=== PATIENT | female | born 1960 | race Caucasian/White ===

== ENCOUNTER 2017-10-14 06:32 | Day surgery (SDC) | payer OTHER ==
[2017-10-12 09:19] VITALS: BMI 45.2
[2017-10-14] MEDS ORDERED: Lidocaine 2% Inj (20ml) ONE (08:07)
[2017-10-14] MEDS ORDERED: Midazolam 2 MG/2 ML VIAL ONE ×3 (08:08→11:31)
[2017-10-14] MEDS ORDERED: Iodixanol 320 MG/ML 200 ML BOTTLE IV ONE ×2 (08:08→11:31)
[2017-10-14] MEDS ORDERED: Iodixanol 320 MG/ML 100 ML BOTTLE IV ONE (08:25)
[2017-10-14] MEDS ORDERED: Morphine 4 MG/ML VIAL ONE (12:56)
--- NOTE | 2017-10-14 23:47 | CARDCATH ---
PROCEDURE DATE: 10/14/2017 INDICATIONS: Uvaldo is a 57-year-old female with past medical history significant for hypertension, dyslipidemia, diabetes mellitus, peripheral vascular occlusive disease, status post angioplasty stenting in 12/2016 at [facility]. She started to have worsening symptoms of claudication and after nine months underwent noninvasive evaluation and for which she was brought back for further evaluation and treatment. PROCEDURES PERFORMED: Distal abdominal aortogram with bilateral iliac runoff, selective bilateral iliofemoral angiogram with runoff, [employer] atherectomy of right SFA with use of 1.5 CSI atherectomy device, addition of balloon angioplasty with 6.0 x 250 balloon, right SFA multiple tandem 99% and 80% stenosis down to 0% ABY-3 flow, 6-[place] left femoral arterial access, Mynx closure device for hemostasis. TECHNIQUES OF PROCEDURE: After obtaining informed consent, patient was brought to the cardiac cath suite in post-absorptive, non-sedated state. Patient was prepped and draped in the usual sterile fashion. Then, 2% lidocaine was used for infiltration of anesthesia. Using modified Seldinger technique, a 6-[place] sheath was introduced into the left femoral artery. Left iliofemoral angiogram with runoff was performed. Subsequently, over a glide Advantage wire, a catheter was advanced into the abdominal aorta. Abdominal aortogram with bilateral iliac runoff was performed. Subsequently, a catheter was advanced across the aortoiliac bifurcation to the right common femoral artery. Digital subtraction angiographic views of the right SFA, right popliteal, right [id number], and a right foot profile was obtained. Angiographic findings of the left lower extremity, left common iliac and external iliac were patent. Left profunda femoris was patent. SFA moderate diffuse, 60% stenosis with mid-80% stenosis with 2-vessel runoff of AT and peroneal below the knee. Right lower extremity: Right common iliac and external iliac patent. Profunda femoris was patent. SFA has proximal 99% stenosis, mid 80% stenosis, and then distal SFA has a stent with two tandem lesions, 99% and 80%, 3-vessel runoff below the knee. TECHNIQUES OF INTERVENTION: After reviewing the above angiographic findings, the 6-Tai[place]ese sheath was exchanged over a Glidewire. Over the Glidewire a 6-[place]ese 45-cm Destination [place] sheath, the distal tip of which was placed at the level of the right common femoral artery. Subsequently, digital subtraction angiographic views were obtained and a wire was used to negotiate through the 99% stenosis and below the infrapopliteal segment. At this point, atherectomy with 1.5 CSI atherectomy device of the nikolski stenosis was done and subsequently balloon angioplasty with 6.0 x 250 balloon was done with lesion reduction down to 0%, ABY 3 flow. Final angiogram then showed good ABY-3 flow up to the level of the foot. IMPRESSION: Successful percutaneous transluminal angioplasty atherectomy, angioplasty of the right superficial femoral artery with use of 1.5 CSI atherectomy device, addition of balloon angioplasty with 6.0 x 250 balloon. RECOMMENDATIONS: Dual-antiplatelet therapy for one year, guideline-directed therapy for peripheral vascular disease. Patient can be discharged home in 3 hours and follow up with Dr. Brown in 1 to 2 weeks' time at the [place] office. Casey Brown MD
== END 2017-10-14 17:38 | disposition home or self-care (01) ==
LOC: C.CATHLAB 06:32
PROVIDERS: ATTEND Internal Medicine Interventional Cardiology
DX: I70.213 Atherosclerosis of native arteries of extremities with intermittent claudication, bilateral legs (principal); E11.51 Type 2 diabetes mellitus with diabetic peripheral angiopathy without gangrene; E78.5 Hyperlipidemia, unspecified; I10 Essential (primary) hypertension; Z79.02 Long term (current) use of antithrombotics/antiplatelets; Z79.82 Long term (current) use of aspirin; Z79.4 Long term (current) use of insulin; Z79.899 Other long term (current) drug therapy
CPT/HCPCS: 36247; 37225; 75625; 75774; C1714; C1725; C1760; C1766; C1769; C1887; J2250; J3010; Q9966; Q9967